=== PATIENT | female | born 1970 | race African-American/Black ===

== ENCOUNTER 2018-04-05 00:56 | Emergency (ER) | payer MEDICAID ==
[~2018-04-05] VITALS: Ht 162.6 cm; Wt 49.0 kg
[2018-04-05] MEDS ORDERED: IBUPROFEN 600MG TABLET PO ONE (05:15)
[2018-04-05 05:45] VITALS: BP 95/54
[2018-04-05] MEDS ORDERED: HALOPERIDOL LACTATE 5MG/ML VIAL IM ONE (05:45)
[2018-04-05] MEDS ORDERED: PENICILLIN V POTASSIUM 250MG TABLET PO SCH (06:00)
== END 2018-04-05 05:50 | disposition home or self-care (01) ==
LOC: ER 03:14
DX: K04.7 Periapical abscess without sinus (principal); G89.29 Other chronic pain; R10.9 Unspecified abdominal pain; K08.409 Partial loss of teeth, unspecified cause, unspecified class; F12.90 Cannabis use, unspecified, uncomplicated; Z86.59 Personal history of other mental and behavioral disorders
CPT/HCPCS: 99281; J1630

== ENCOUNTER 2019-02-19 22:34 | Emergency (ER) | payer MEDICAID ==
[~2019-02-19] VITALS: Ht 162.6 cm; Wt 51.0 kg
[2019-02-19 23:10] VITALS: BP 100/70
[2019-02-20] MEDS ORDERED: KETOROLAC 60MG/2ML VIAL IM STA (00:43)
[2019-02-20] MEDS ORDERED: IBUPROFEN 800MG TABLET PO ONE (02:00)
== END 2019-02-20 03:19 | disposition home or self-care (01) ==
LOC: ER 22:34
DX: K02.9 Dental caries, unspecified (principal); J45.909 Unspecified asthma, uncomplicated
CPT/HCPCS: 81025; 99282; J1885